=== PATIENT | female | born 1980 | race Caucasian/White ===

== ENCOUNTER → 2017-04-04 | Outpatient (CLI) | payer BC | END | disposition home or self-care (01) | LOC: MMGSC 15:50 | PROVIDERS: ATTEND Family Medicine | DX: L02.93 Carbuncle, unspecified (principal) | CPT/HCPCS: 87070; 87205 ==

== ENCOUNTER → 2017-04-07 | Outpatient (CLI) | payer BC | END | disposition home or self-care (01) | LOC: MMGSC 10:18 | PROVIDERS: ATTEND Family Medicine | DX: N39.0 Urinary tract infection, site not specified (principal) | CPT/HCPCS: 87086 ==

== ENCOUNTER 2017-08-23 08:54 | Day surgery (SDC) | payer BC ==
[2017-08-17 14:43] VITALS: BMI 61.3
[~2017-08-23 08:54] MED LIST: DEXAMETHASONE SOD PHOSPHATE 10 MG/ML 1 ML VIAL IV ONE; HEPARIN SODIUM,PORCINE 5,000 UNIT/ML 1 ML VIAL SQ ONE; HYDROmorphone 0.5 MG/0.5 ML SYRINGE IVP PRN; LACTATED RINGERS 1,000 ML IV SCH; ONDANSETRON 4 MG/2 ML VIAL IVP ONE; Pre Op ABX Message 1 EACH MISC MISCELLANE ONE
[2017-08-23] MEDS ORDERED: LIDOCAINE 1% 20 ML VIAL (10MG/ML) FOR IV START INTRADERMA ONE (09:36)
[2017-08-23] MEDS ORDERED: fentaNYL (PF) 50 MCG/ML 2 ML AMP ONE (10:12)
[2017-08-23] MEDS ORDERED: PROPOFOL 10 MG/ML 20 ML VIAL IV ONE (10:12)
[2017-08-23] MEDS ORDERED: SUCCINYLCHOLINE CHLORIDE 100 MG/5 ML SYR IV ONE (10:12)
[2017-08-23] MEDS ORDERED: SODIUM CHLORIDE 0.9% 50 ML with ceFAZolin 2,000 MG IV ONE ×2 (10:12)
[2017-08-23] MEDS ORDERED: LIDOCAINE 1% INJ 10MG/ML (20 ML MDV) ONE (10:12)
[2017-08-23] MEDS ORDERED: MIDAZOLAM 2 MG/2 ML VIAL ONE (10:12)
[2017-08-23] MEDS ORDERED: GLYCOPYRROLATE 0.2 MG/ML 2 ML VIAL ONE (10:12)
[2017-08-23] MEDS ORDERED: BUPIVACAINE-EPI 0.5%-1:200,000 10 ML VIAL SQ ONE ×2 (10:43)
[2017-08-23 11:15] VITALS: TEMP 96.8
--- NOTE | 2017-08-23 11:58 | P.OP ---
Date of Procedure: 08/23/17 Preoperative Diagnosis: Morbid obesity BMI 61.3 Soft tissue mass 2 in left medial thigh/gluteal fold Postoperative Diagnosis: Same Procedure(s) Performed: Excision of soft tissue mass 2 Implants: NA Anesthesia: ROSALEE, local Surgeon: Toña Marr Pathology: other Condition: stable Disposition: PACU Description of Procedure: She was brought to the operating room and placed in supine position. Gen. anesthesia with endotracheal intubation was performed as per anesthesia team to verify correct patient, correct procedure and correct side. Patient was placed in frog-leg position. Chlorhexidine was used to prep the skin followed by application of sterile drapes. A 0.5 x 0.5 cm skin incision was made to remove this small skin and subcutaneous tissue lesion. This was closed with single stitch of 3-0 nylon. The abscess and 2 x 2 centimeters that indurated mass was excised. Post excision measurement 2 x 2 by 0.5 cm. This was closed with interrupted sutures of 3-0 nylon. The instrument and needle count were correct 2.
[2017-08-23 12:34] VITALS: RESP 16
[2017-08-23 12:36] VITALS: BP 115/59; PULSE 86
== END 2017-08-23 12:25 | disposition home or self-care (01) ==
LOC: OR 08:54
PROVIDERS: ATTEND Surgery
DX: R22.2 Localized swelling, mass and lump, trunk (principal); L02.31 Cutaneous abscess of buttock; E66.01 Morbid (severe) obesity due to excess calories; Z68.44 Body mass index [BMI] 60.0-69.9, adult; I10 Essential (primary) hypertension; G47.33 Obstructive sleep apnea (adult) (pediatric); K21.9 Gastro-esophageal reflux disease without esophagitis; F17.200 Nicotine dependence, unspecified, uncomplicated; Z79.899 Other long term (current) drug therapy
CPT/HCPCS: 11402; 81025; 88304; J2250; J1644; J1100; J2405; J2001; J3010; J0690; J0330; J2704

== ENCOUNTER → 2017-09-29 | Outpatient (CLI) | payer BC | END | disposition home or self-care (01) | LOC: MMGSC 12:32 | PROVIDERS: ATTEND Family Medicine | DX: L72.8 Other follicular cysts of the skin and subcutaneous tissue (principal) | CPT/HCPCS: 87070; 87077; 87186; 87205 ==

== ENCOUNTER → 2018-01-08 | Outpatient (CLI) | payer BC ==
[2018-01-08 19:29] LABS: Basophils # (A) 0.1 k/uL (0-0.2); Basophils % (A) 1 %; Eosinophils # (A) 0.1 k/uL (0-0.7); Eosinophils % (A) 1 %; HCT 42.8 % (34.0-46.0); HGB 14.3 gm/dL (11.4-16.0); Lymphocytes # (A) 3.8 k/uL (1.0-4.8); Lymphocytes % (A) 33 %; MCH 28.1 pg (25.0-35.0); MCHC 33.4 g/dL (31.0-37.0); Mean Platelet Volume 6.6; Monocytes # (A) 0.7 k/uL (0-1.0); Monocytes % (A) 6 %; Neutrophils # (A) 6.5 k/uL (1.3-7.7); Neutrophils % (A) 58 %; Platelet Count 466 k/uL (150-450); RBC 5.09 m/uL (3.80-5.40); RDW 13.4 % (11.5-15.5); WBC 11.3 k/uL (3.8-10.6)
[2018-01-08 19:31] LABS: ALT 13 U/L (9-52); AST 18 U/L (14-36); Albumin 3.8 g/dL (3.5-5.0); Alkaline Phosphatase 82 U/L (38-126); Anion Gap 9 mmol/L; Blood Urea Nitrogen 13 mg/dL (7-17); Calcium 9.6 mg/dL (8.4-10.2); Carbon Dioxide 28 mmol/L (22-30); Chloride 104 mmol/L (98-107); Cholesterol 164 mg/dL (<200); Glucose 103 mg/dL (74-99); HDL Cholesterol 44 mg/dL (40-60); LDL Cholesterol,Calculated 91 mg/dL (0-99); Potassium 4.4 mmol/L (3.5-5.1); Sodium 141 mmol/L (137-145); Total Bilirubin 0.2 mg/dL (0.2-1.3); Triglycerides 144 mg/dL (<150)
[2018-01-08 19:39] LABS: T4, Free (Free Thyroxine) 0.81 ng/dL (0.78-2.19)
[2018-01-09 00:49] LABS: Vitamin D 25 Hydroxy 7.8 ng/mL (30.0-100.0)
== END | disposition home or self-care (01) ==
LOC: MMGSC 15:21
PROVIDERS: ATTEND Family Medicine
DX: I10 Essential (primary) hypertension (principal); E66.9 Obesity, unspecified; E78.5 Hyperlipidemia, unspecified; R53.83 Other fatigue
CPT/HCPCS: 36415; 80053; 80061; 82306; 82607; 84439; 84443; 85025

== ENCOUNTER → 2018-11-30 | Outpatient (CLI) | payer BC ==
[2018-11-30 09:51] LABS: HCT 42.9 % (34.0-46.0); HGB 13.8 gm/dL (11.4-16.0); MCH 27.8 pg (25.0-35.0); MCHC 32.3 g/dL (31.0-37.0); MCV 86.3 fL (80.0-100.0); Mean Platelet Volume 6.3; Platelet Count 428 k/uL (150-450); RBC 4.97 m/uL (3.80-5.40); RDW 13.8 % (11.5-15.5); WBC 10.3 k/uL (3.8-10.6)
[2018-11-30 17:55] LABS: Albumin/Globulin Ratio 1.82 (1.60-3.17); Anion Gap 6.3 mmol/L (4.00-12.00); Calcium 9.2 mg/dL (8.7-10.3); Carbon Dioxide 28.7 mmol/L (21.6-31.8); Globulin 2.2 g/dL (1.6-3.3); Potassium 4.6 mmol/L (3.5-5.5); Total Bilirubin 0.3 mg/dL (0.2-1.2); Total Protein 6.2 g/dL (6.2-8.2)
[2018-11-30 18:06] LABS: T4, Free (Free Thyroxine) 0.8 ng/dL (0.80-1.80)
[2018-11-30 22:23] LABS: Hemoglobin A1C 6.1 % (4.0-6.0)
== END | disposition home or self-care (01) ==
LOC: LABWHC1 08:48
PROVIDERS: ATTEND Family Medicine
DX: I10 Essential (primary) hypertension (principal); E66.9 Obesity, unspecified; E03.9 Hypothyroidism, unspecified; E55.9 Vitamin D deficiency, unspecified
CPT/HCPCS: 36415; 80053; 82306; 83036; 84439; 84443; 85027

== ENCOUNTER → 2019-09-19 | Outpatient (CLI) | payer BC ==
[2019-09-19 16:44] LABS: African American GFR (CKD) 108.4 (60.0-200.0); Albumin 4.1 g/dL (3.80-4.90); Albumin/Globulin Ratio 1.78 (1.60-3.17); Anion Gap 5.2 mmol/L (4.00-12.00); BUN/Creat Ratio 13.75 Ratio (12.00-20.00); Calcium 9.4 mg/dL (8.7-10.3); Carbon Dioxide 30.8 mmol/L (21.6-31.8); Chol/HDL Ratio 3.36; Globulin 2.3 g/dL (1.6-3.3); LDL Cholesterol,Calculated 80.2 mg/dL (0.0-131.0); Non-African American GFR(CKD) 93.5 (60.0-200.0); Potassium 4.8 mmol/L (3.5-5.5); Total Bilirubin 0.3 mg/dL (0.3-1.2); Total Protein 6.4 g/dL (6.2-8.2); VLDL Calculation 25.8 mg/dL (5.00-40.00)
[2019-09-19 16:51] LABS: T4, Free (Free Thyroxine) 0.9 ng/dL (0.80-1.80)
[2019-09-19 18:05] LABS: Hemoglobin A1C 6.2 % (4.0-6.0)
== END | disposition home or self-care (01) ==
LOC: LABWHC1 08:54
PROVIDERS: ATTEND Family Medicine
DX: I10 Essential (primary) hypertension (principal); E03.9 Hypothyroidism, unspecified
CPT/HCPCS: 36415; 80053; 80061; 83036; 84439; 84443

== ENCOUNTER → 2019-12-05 | Outpatient (CLI) | payer BC ==
--- NOTE | 2019-12-05 20:48 | CONS ---
CONSULTATION DATE OF SERVICE: 12/05/2019 This patient is a 39-year-old lady who has been evaluated for obstructive sleep apnea- hypopnea syndrome. HISTORY OF PRESENT ILLNESS/SLEEP-WAKE EVALUATION: This patient was diagnosed with obstructive sleep apnea about 15 years ago. After that, the patient underwent ear, nose and throat surgery UPPP with adenoidectomy, and her condition improved. She had another sleep study which showed that her breathing is better, but it has not normalized. The patient has gained about 100 pounds since her last sleep study and at present has loud snoring and witnessed episodes of stopped breathing during sleep. Her sleep schedule on weekdays is from around 1 p.m. until 9 p.m. and on weekends from around 5 a.m. until 2 p.m. She usually works the midnight shift. She does have problems with falling asleep. She has a TV set in the bedroom. She sleeps on the side and stomach positions. She takes an additional nap around 5 p.m., depending on her schedule. She wakes up from sleep around 2 times with nocturia. During the night she has a rocking movements of her bottom. No history of hypnagogic hallucinations, sleep paralysis or cataplexy. [place] Sleepiness Scale is 6. PAST MEDICAL HISTORY: Positive for hypertension, hypothyroidism, headaches, depression, acid reflux. PAST SURGICAL HISTORY: Cholecystectomy, UPPP. MEDICATIONS: Levothyroxine, sumatriptan, amlodipine, metoprolol, amitriptyline, sertraline, famotidine, acetaminophen. SOCIAL HISTORY: Positive for smoking about one pack a day for around 20 years. Alcohol consumption none. FAMILY HISTORY: Hypertension, heart problems, hyperlipidemia, arthritis, asthma, headaches, acid reflux, ulcers, diabetes, thyroid problems. REVIEW OF SYSTEMS: Multiple awakenings from sleep, tiredness and sleepiness with taking naps. PHYSICAL EXAMINATION: GENERAL: A pleasant lady without distress. VITAL SIGNS: BP 164/94, HR 88, RR 16, height 5 feet 7 inches, weight 408 pounds, body mass index 63.9, temperature 98.2, oxygen saturation at room air 96%. HEENT: PERRLA, EOMI. Evaluation of oropharynx showed tongue protrudes midline. Extremely low position of soft palate. Mallampati IV. Restriction of nasal breathing. NECK: Supple. No JVD. Thyroid is not palpable. Wide neck. LUNGS: Clear to percussion and to auscultation. Good air exchange. No wheezing or rhonchi. HEART: S1, S2 regular. No murmurs, gallops or rubs. ABDOMEN: Obese. EXTREMITIES: One plus ankle edema. BIODIESEL PLANT MANAGER: Awake, alert, and oriented X3. Cranial nerves 2 to 7 intact. There is no fasciculation or atrophy. noted. No focal deficits observed. IMPRESSION: 1. Loud snoring, witnessed episodes of stopped breathing during sleep, extremely low position of soft palate, Mallampati IV, wide neck, obesity; obstructive sleep apnea- hypopnea syndrome. 2. Obesity; body mass index 63.9. 3. Rocking movements during sleep; possibly periodic limb movements. 4. Hypothyroidism. 5. Hypertension. 6. Episodes of headaches. 7. Depression. 8. Acid reflux. 9. Status post cholecystectomy. 10.Status post UPPP and adenoidectomy about 15 years ago. PLAN: 1. Polysomnography for evaluation of patient's breathing during sleep. 2. CPAP/BiPAP titration if sleep study confirms obstructive sleep apnea-hypopnea syndrome. 3. Preferable position during sleep on the side. 4. No driving if patient feels any sleepiness. 5. I will see patient for follow up visit to explain results of testing and following plan. Thank you very much for referring this patient for consultation. Sincerely, James Mcguire MD, PhD, FAASM Diplomat of [employer] Powder Compounder of [facility] [place] MMODL / IJN: [id number] /
== END | disposition home or self-care (01) ==
LOC: SLEEP 14:51
PROVIDERS: ATTEND Internal Medicine
DX: G47.33 Obstructive sleep apnea (adult) (pediatric) (principal); E66.9 Obesity, unspecified; G47.69 Other sleep related movement disorders; E03.9 Hypothyroidism, unspecified; I10 Essential (primary) hypertension; K21.9 Gastro-esophageal reflux disease without esophagitis; F32.9 Major depressive disorder, single episode, unspecified; Z68.44 Body mass index [BMI] 60.0-69.9, adult; Z90.49 Acquired absence of other specified parts of digestive tract; Z90.89 Acquired absence of other organs; Z98.890 Other specified postprocedural states; F17.200 Nicotine dependence, unspecified, uncomplicated; Z79.899 Other long term (current) drug therapy; Z79.890 Hormone replacement therapy
CPT/HCPCS: 99211

== ENCOUNTER → 2020-05-28 | Outpatient (CLI) | payer BC ==
--- NOTE | 2020-05-28 16:22 | SFUN ---
SLEEP CENTER FOLLOW UP NOTE DATE OF SERVICE: 05/28/2020 A 39-year-old lady who has been followed in the sleep Center for treatment of obstructive sleep apnea-hypopnea syndrome. Recently patient had a polysomnogram which showed extremely severe sleep apnea. Then she had CPAP-BiPAP titration and subsequently was started on treatment with BiPAP. Today is her first visit after starting to use BiPAP equipment. Patient feels better with the BiPAP. She sleeps better. [place] Sleepiness Scale today is only 2. I checked her BiPAP unit, maximal IPAP pressure 22 cm of water, minimum EPAP pressure 18 cm of water pressure support 4, average pressure 21.5/17.4. Leak 20 L/minute which is borderline. Apnea-hypopnea index average for the last month is 13, usage is 22/30 nights for more than 4 hours with average usage 7.3 hours per night, which is normal compliance. MEDICATIONS: Levothyroxine, amlodipine, metoprolol, amitriptyline, sertraline, famotidine, acetaminophen, albuterol, Flovent. PHYSICAL EXAM: Patient is in no distress. BP 165/77, HR 84, RR 18, weight 433 pounds, temperature 97.5, oxygen saturation at room air 94%. HEENT: Oropharynx extremely low position of soft palate. Mallampati 4. NECK: Supple, no JVD. Thyroid is not palpable. LUNGS: Clear to percussion and to auscultation. Good air exchange. No wheezing or rhonchi. HEART: S1, S2 regular. No murmurs, gallops, or rubs. ABDOMEN: Obese. EXTREMITIES: No clubbing or cyanosis. NANOTECHNOLOGY ENGINEERING TECHNOLOGIST: Awake, alert, and oriented X3. Cranial nerves 2 to 7 intact. There is no fasciculation or atrophy. noted. No focal deficits observed. IMPRESSION: 1. Extremely severe obstructive sleep apnea-hypopnea syndrome; apnea-hypopnea index 115.4 with oxygen desaturation to 36.1%, improved on BiPAP. The patient demonstrated good compliance with treatment benefitting from treatment. 2. Morbid obesity, body mass index more than 60. 3. Periodic limb movements. 4. Hypothyroidism. 5. Hypertension. 6. Episodes of headaches. 7. Depression. 8. Acid reflux. 9. Status post UPPP and adenoidectomy about 15 years ago. 10.Status post cholecystectomy. PLAN: PLAN 1.I will increase pressure in BiPAP unit to the maximal pressure of 25. 2.Sleep hygiene with regular time in bed for at least 7-1/2 to 8 hours. 1. Precautions related to driving. No driving if feeling sleepiness. 2. I will maintain all necessary prescription for PAP supplies including mask, tube, filters. 3. Watching weight. 4. No driving if feeling sleepiness. 5. Follow-up visit in 6 months or earlier if patient has any problems. Thank you very much for allowing me to participate in the management of your patient. Sincerely, James Mcguire MD, PhD, FAASM Diplomat of [employer] Blast Furnace Helper of [facility] [place] MMODL / IJN: [id number] /
== END | disposition home or self-care (01) ==
LOC: SLEEP 11:33
PROVIDERS: ATTEND Internal Medicine
DX: G47.33 Obstructive sleep apnea (adult) (pediatric) (principal); G47.61 Periodic limb movement disorder; E66.01 Morbid (severe) obesity due to excess calories; E03.9 Hypothyroidism, unspecified; I10 Essential (primary) hypertension; F32.9 Major depressive disorder, single episode, unspecified; R51 Headache; K21.9 Gastro-esophageal reflux disease without esophagitis; Z99.89 Dependence on other enabling machines and devices; Z68.44 Body mass index [BMI] 60.0-69.9, adult; Z90.49 Acquired absence of other specified parts of digestive tract; Z98.890 Other specified postprocedural states

== ENCOUNTER → 2020-07-23 | Outpatient (CLI) | payer BC ==
--- NOTE | 2020-07-23 15:35 | SFUN ---
SLEEP CENTER FOLLOW UP NOTE DATE OF SERVICE: 07/23/2020 A 39-year-old lady who has been followed in Sleep Center for treatment of extremely severe obstructive sleep apnea-hypopnea syndrome. During the previous visit, I increased her BiPAP pressure to the maximal level of 25 cm of water. During the previous visit, the average apnea-hypopnea index was 13. Patient feels better with the CPAP. Sleeps well. [place] Sleepiness Scale today is 2. I checked her BiPAP unit. Maximal inspiratory pressure 25, minimal expiratory pressure 18, pressure support for average pressure of 23.7/19.7. Leak is 5 L/minute. Apnea- hypopnea index 10.9, which is subsequently better than during the previous visit. MEDICATIONS: Amlodipine, metoprolol, amitriptyline, sertraline, famotidine, levothyroxine, acetaminophen, albuterol, Flovent. PHYSICAL EXAM: Patient in no distress. BP 149/97, HR 76, RR 15, height 5, 7, weight 432, which is about the same as during previous visit, BMI 67.6, temperature 98.0, oxygen saturation at room air 97%. OROPHARYNX: Extremely low position of soft palate. Mallampati 4. ABDOMEN: Obese. NECK: Supple, no JVD. Thyroid is not palpable. LUNGS: Clear to percussion and to auscultation. Good air exchange. No wheezing or rhonchi. HEART: S1, S2 regular. No murmurs, gallops, or rubs. EXTREMITIES: No clubbing or cyanosis. PERSONAL INJURY PARALEGAL: Awake, alert, and oriented X3. Cranial nerves 2 to 7 intact. There is no fasciculation or atrophy. noted. No focal deficits observed. IMPRESSION: 1. Extremely severe obstructive sleep apnea-hypopnea syndrome, AHI 115.4, improved on BiPAP. Patient demonstrated good compliance with treatment, benefitting from treatment. 2. Morbid obesity, body mass index 67.6. 3. Periodic limb movements. 4. Hypothyroidism. 5. Hypertension. 6. Depression. 7. Episodes of headaches. 8. Acid reflux. 9. Status post UPPP and adenoidectomy 15 years ago. 10.Status post cholecystectomy. PLAN: 1. BiPAP inspiratory pressure is already on the maximal at 25. To increase expiratory pressure, I changed pressure support to 3 instead of 4. 2. Patient will continue to use PAP equipment every night for the whole night. 3. Sleep hygiene with regular time in bed for at least 7-1/2 to 8 hours. 4. Precautions related to driving. No driving if feeling sleepiness. 5. I will maintain all necessary prescription for PAP supplies including mask, tube, filters. 6. Watching weight. 7. No driving if feeling sleepiness. 8. Follow-up visit in 4 months or earlier if patient has any problems. Thank you very much for allowing me to participate in the management of your patient. Sincerely, James Mcguire MD, PhD, FAASM Diplomat of [employer] [employer] Medicine Test Lead of [facility] [place] MMODL / IJN: [id number] /
== END | disposition home or self-care (01) ==
LOC: SLEEP 11:17
PROVIDERS: ATTEND Internal Medicine
DX: G47.33 Obstructive sleep apnea (adult) (pediatric) (principal); G47.61 Periodic limb movement disorder; I10 Essential (primary) hypertension; E03.9 Hypothyroidism, unspecified; K21.9 Gastro-esophageal reflux disease without esophagitis; F32.9 Major depressive disorder, single episode, unspecified; R51 Headache; E66.01 Morbid (severe) obesity due to excess calories; Z68.44 Body mass index [BMI] 60.0-69.9, adult; Z98.890 Other specified postprocedural states; Z90.89 Acquired absence of other organs; Z90.49 Acquired absence of other specified parts of digestive tract; Z79.899 Other long term (current) drug therapy; Z79.890 Hormone replacement therapy; Z79.891 Long term (current) use of opiate analgesic; Z79.51 Long term (current) use of inhaled steroids; Z99.89 Dependence on other enabling machines and devices

== ENCOUNTER → 2020-08-19 | Outpatient (CLI) | payer BC ==
--- NOTE | 2020-08-19 10:31 | US ---
EXAMINATION TYPE: US pelvic complete DATE OF EXAM: 08/19/2020 COMPARISON: US 2013 CLINICAL HISTORY: R10.2 Pelvic and perineal pain. Intermittent pelvic pain x couple months, 0 , history of PCOS TECHNIQUE: . Transabdominal sonographic images of the pelvis were acquired. Transvaginal sonographi c images were medically necessary to better assess the following anatomy: uterus and ovaries Date of LMP: 08/14/2020 EXAM MEASUREMENTS: Uterus: 5.7 x 3.3 x 3.5 cm Endometrial Stripe: 0.3 cm Right Ovary: 3.1 x 2.3 x 2.8 cm Left Ovary: 3.4 x 2.6 x 2.2 cm Difficult and limited study due to morbidly obese patient 1. Uterus: retroverted, heterogeneous, multiple nabothian cysts 2. Endometrium: wnl 3. Right Ovary: multiple follicles 4. Left Ovary: multiple follicles 5. Bilateral Adnexa: wnl 6. Posterior cul-de-sac: wnl IMPRESSION: 1. Nonspecific heterogeneous pattern of the uterus. No discrete fibroids. Endometrium measures within normal limits and there is no evidence of adnexal mass.
== END | disposition home or self-care (01) ==
LOC: RADUSWWP 09:44
PROVIDERS: ATTEND Family Medicine
DX: N85.4 Malposition of uterus (principal)
CPT/HCPCS: 76830

== ENCOUNTER → 2020-11-26 | Outpatient (CLI) | payer BC ==
--- NOTE | 2020-11-26 20:58 | SFUN ---
SLEEP CENTER FOLLOW UP NOTE DATE OF SERVICE: 11/26/2020 This is a 40-year-old lady who has been followed in Sleep Center for treatment of obstructive sleep apnea-hypopnea syndrome. Patient continues to use her BiPAP equipment every night for the whole night and sleeps well with the machine. [place] Sleepiness Scale today is actually zero. I checked her BiPAP unit. I changed the pressure in the BiPAP last time. The current maximal inspiratory pressure is 25, minimal expiratory pressure 18, pressure support 3. The patient is using it 28/30 nights for more than 4 hours with average usage 8.7 hours per night. Leak is only 1 L/minute. Apnea-hypopnea index is 7.0, which is an improvement compared with the previous visit, when it was in the range of 11. MEDICATIONS: 1. Metoprolol 100 mg once a day. 2. Mobic mg once a day. 3. Victoza once a day. 4. Amlodipine 10-20 mg once a day. 5. Amitriptyline 10 mg once a day. PHYSICAL EXAMINATION: GENERAL: A pleasant patient in no distress. VITAL SIGNS: BP 155/95, HR 57, RR 15, height 5 feet 8 inches, weight 430.4 pounds, body mass index 65.6, temperature 98.1, oxygen saturation at room air 99%. HEENT: PERRLA, EOMI. Evaluation of oropharynx showed tongue protrudes midline. Extremely low position of soft palate. Mallampati IV. NECK: Supple. No JVD. Thyroid is not palpable. LUNGS: Clear to percussion and to auscultation. Good air exchange. No wheezing or rhonchi. HEART: S1, S2 regular. No murmurs, gallops or rubs. ABDOMEN: Significantly obese. EXTREMITIES: No clubbing or cyanosis. PREMIUM SERVICE REPRESENTATIVE: Awake, alert, and oriented X3. Cranial nerves 2 to 7 intact. There is no fasciculation or atrophy. noted. No focal deficits observed. IMPRESSION: 1. Extremely severe obstructive sleep apnea-hypopnea syndrome with original apnea- hypopnea index 115.4. The patient has demonstrated great compliance with treatment, benefitting from treatment. 2. Morbid obesity. BMI 65.6. 3. History of periodic limb movements. No significant complaints about limb movements at the present time. No sleepiness during the day. 4. Hypothyroidism. 5. Hypertension. 6. History of depression. 7. History of episodes of headaches. 8. Acid reflux. 9. Status post UPPP and adenoidectomy 15 years ago. 10.Status post cholecystectomy. PLAN: 1. Patient will continue to use PAP equipment every night for the whole night. 2. Sleep hygiene with regular time in bed for at least 7-1/2 to 8 hours. 3. Precautions related to driving. No driving if feeling sleepiness. 4. I will maintain all necessary prescription for PAP supplies including mask, tube, filters. 5. Watching weight. 6. No driving if feeling sleepiness. 7. Follow-up visit in 6 months or earlier if patient has any problems. Thank you very much for allowing me to participate in the management of your patient. Sincerely, James Mcguire MD, PhD, FAASM Diplomat of [employer] Medicine 911 Dispatcher of [facility] [place] MMODL / IJN: [id number] /
== END | disposition home or self-care (01) ==
LOC: SLEEP 11:46
PROVIDERS: ATTEND Internal Medicine
DX: G47.33 Obstructive sleep apnea (adult) (pediatric) (principal); E66.01 Morbid (severe) obesity due to excess calories; E03.9 Hypothyroidism, unspecified; I10 Essential (primary) hypertension; Z86.69 Personal history of other diseases of the nervous system and sense organs; Z90.49 Acquired absence of other specified parts of digestive tract; K21.9 Gastro-esophageal reflux disease without esophagitis; Z98.890 Other specified postprocedural states; Z68.44 Body mass index [BMI] 60.0-69.9, adult; Z79.1 Long term (current) use of non-steroidal anti-inflammatories (NSAID); Z79.899 Other long term (current) drug therapy; Z99.89 Dependence on other enabling machines and devices

== ENCOUNTER → 2021-06-10 | Outpatient (CLI) | payer BC ==
--- NOTE | 2021-06-10 14:28 | SFUN ---
SLEEP CENTER FOLLOW UP NOTE DATE OF SERVICE: 06/10/2021 This 40-year-old lady has been followed in Sleep Center for treatment of obstructive sleep apnea-hypopnea syndrome. The patient has extremely severe sleep apnea. A couple of visits ago I changed BiPAP pressure, increasing it. During the previous visit, apnea-hypopnea index was 7, which showed improvement, but still slightly above normal range. Again, the patient continues to use her equipment every night. No snoring with the machine. [place] Sleepiness Scale is zero. I checked her BiPAP unit. The air filter needs to be changed. Maximal inspiratory pressure is 25, minimal expiratory pressure 18, pressure support 3. Usage is 27/30 nights and 23/30 nights for more than 4 hours. Leak is only 0 L/minute. Apnea-hypopnea index is only 1.8. The patient explained that the day when she did not use it, at night she worked. MEDICATIONS: 1. Metoprolol 100 mg once a day. 2. Amlodipine/benazepril 10/20 mg once a day. 3. Meloxicam 15 mg once a day. 4. Amitriptyline 10 mg once a day. 5. Levothyroxine 50 mcg once a day. 6. Victoza injection once a day. 7. Flovent twice a day inhaler. 8. Albuterol on a p.r.n. basis inhaler. 9. Omeprazole 20 mg once a day. 10.Vitamin C 1000 mg supplement once a day. 11.Polyvitamins. PHYSICAL EXAMINATION: GENERAL: A pleasant patient without any distress. VITAL SIGNS: BP 133/79, HR 68, RR 18, height 5 feet 7 inches, weight 410. Patient lost 20 pounds since previous visit. Body mass index 64.2, temperature 98.7, oxygen saturation at room air 95%. HEENT: PERRLA, EOMI, evaluation of oropharynx showed tongue protrudes midline. Extremely low position of soft palate, Mallampati IV. NECK: Supple, no JVD. Thyroid is not palpable. LUNGS: Clear to percussion and to auscultation. Good air exchange. No wheezing or rhonchi. HEART: S1, S2 regular. No murmurs, gallops, or rubs. ABDOMEN: Obese. EXTREMITIES: No clubbing or cyanosis. PILLING MACHINE OPERATOR: Awake, alert, and oriented X3. Cranial nerves 2 to 7 intact. There is no fasciculation or atrophy. noted. No focal deficits observed. IMPRESSION: 1. Extremely severe obstructive sleep apnea-hypopnea syndrome; apnea-hypopnea index 115.4. The patient demonstrated good compliance with treatment. Presently full normalization of patient's respiration on BiPAP to normal. 2. Morbid obesity. Patient lost about 20 pounds since previous visit. Body mass index 64.2. 3. History of periodic limb movements. Presently no complaints of periodic limb movements. Now patient sleeps well. 4. Hypothyroidism. 5. Hypertension. 6. History of depression. 7. History of headaches. 8. Acid reflux. 9. Status post UPPP and adenoidectomy 15 years ago. 10.Status post cholecystectomy. PLAN: 1. Patient will continue to use PAP equipment every night for the whole night. 2. Sleep hygiene with regular time in bed for at least 7-1/2 to 8 hours. 3. Precautions related to driving. No driving if feeling sleepiness. 4. I will maintain all necessary prescription for PAP supplies including mask, tube, filters. 5. Watching weight. 6. Follow-up visit in 6 months or earlier if patient has any problems. Thank you very much for allowing me to participate in the management of your patient. Sincerely, James Mcguire MD, PhD, FAASM Diplomat of [employer] Sleep Medicine Board of [employer] Board of Internal Medicine Submarine Element Coordinator of [facility] [place] MMODL / TOBYN: [id number] /
== END ==
LOC: SLEEP 10:49
PROVIDERS: ATTEND Internal Medicine
DX: G47.33 Obstructive sleep apnea (adult) (pediatric) (principal); E66.01 Morbid (severe) obesity due to excess calories; E03.9 Hypothyroidism, unspecified; I10 Essential (primary) hypertension; F32.9 Major depressive disorder, single episode, unspecified; K21.9 Gastro-esophageal reflux disease without esophagitis; F17.200 Nicotine dependence, unspecified, uncomplicated; Z68.44 Body mass index [BMI] 60.0-69.9, adult; Z90.89 Acquired absence of other organs; Z90.49 Acquired absence of other specified parts of digestive tract; Z87.898 Personal history of other specified conditions; Z86.69 Personal history of other diseases of the nervous system and sense organs

== ENCOUNTER → 2021-12-09 | Outpatient (CLI) | payer BC ==
--- NOTE | 2021-12-09 13:48 | SFUN ---
SLEEP CENTER FOLLOW UP NOTE DATE OF SERVICE: 12/09/2021. 41-year-old lady has been followed in Sleep Center for treatment of severe obstructive sleep apnea-hypopnea syndrome. Patient continued to use her BiPAP equipment every night, getting her supplies in time. [place] Sleepiness Scale today is 0. I checked her BiPAP unit. Maximal inspiratory pressure 25, minimal expiratory pressure 18, pressure support 3, average pressure 22/19, usage is 29/30 nights and 24/30 nights for more than 4 hours, average 8.3 hours per night. Leak is 0 L/minute. Apnea-hypopnea index is 1.6 which is totally normal. MEDICATIONS: Meloxicam 15 mg once a day, amitriptyline 10 mg once a day, metoprolol 100 mg once a day, amlodipine, benazepril 10-20 mg once a day. PHYSICAL EXAMINATION: GENERAL: Patient in no distress. BP 137/90, HR 71, RR 18, weight 395.8 pounds, which is 15 pounds less than during previous visit. Height 5 feet 7 inches, Oropharynx: Extremely low position of soft palate, Mallampati 4. NECK: Supple, no JVD. Thyroid is not palpable. LUNGS: Clear to percussion and to auscultation. Good air exchange. No wheezing or rhonchi. HEART: S1, S2 regular. No murmurs, gallops, or rubs. ABDOMEN: Obese. Soft and nontender. Bowel sounds are present. No organomegaly appreciated. EXTREMITIES: No clubbing or cyanosis. VENTURE CAPITALIST: Awake, alert, and oriented X3. Cranial nerves 2 to 7 intact. There is no fasciculation or atrophy. noted. No focal deficits observed. IMPRESSION: 1. Extremely severe obstructive sleep apnea-hypopnea syndrome. Original apnea- hypopnea index 115.4. The patient demonstrated great compliance with treatment. Normal respiration on BiPAP. 2. Morbid obesity. Patient lost 15 pounds since previous visit. 3. History of periodic limb movements during the sleep study. Presently no complaints on any leg movements. 4. Hypertension. 5. Hypothyroidism. 6. History of depression. 7. History of headaches. 8. Acid reflux. 9. Status post uvulopalatopharyngoplasty and adenoidectomy about 15 years ago. 10.Status post cholecystectomy. PLAN: 1. Patient will continue to use PAP equipment every night for the whole night. 2. Sleep hygiene with regular time in bed for at least 7-1/2 to 8 hours. 3. Precautions related to driving. No driving if feeling sleepiness. 4. I will maintain all necessary prescription for PAP supplies including mask, tube, filters. 5. Watching weight. 6. Follow-up visit in 6 months or earlier if patient has any problems. Thank you very much for allowing me to participate in the management of your patient. Sincerely, James Mcguire MD, PhD, FAASM Diplomat of [employer] Sleep Medicine Board of [employer] of Internal Medicine Carry Out Clerk And Shelf Stocker of [facility] [place] MMODL / TOBYN: [id number] /
== END ==
LOC: SLEEP 10:47
PROVIDERS: ATTEND Internal Medicine
DX: G47.33 Obstructive sleep apnea (adult) (pediatric) (principal); E66.01 Morbid (severe) obesity due to excess calories; I10 Essential (primary) hypertension; E03.9 Hypothyroidism, unspecified; F32.A Depression, unspecified; K21.9 Gastro-esophageal reflux disease without esophagitis; Z90.49 Acquired absence of other specified parts of digestive tract; Z98.890 Other specified postprocedural states; Z90.09 Acquired absence of other part of head and neck; F17.200 Nicotine dependence, unspecified, uncomplicated; Z99.89 Dependence on other enabling machines and devices

== ENCOUNTER → 2022-05-13 | Outpatient (CLI) | payer OTHER ==
--- NOTE | 2022-05-16 07:40 | MM ---
Reason for Exam: Screening (asymptomatic). Baseline mammogram. Patient History: Menarche at age 18. Patient has no children. Premenopausal. Maternal grandmother had breast cancer under age 50. Paternal grandmother had breast cancer under age 50. Last menstrual period: 05/06/2022 Risk Values: Ximena 5 year model risk: 0.6%. NCI Lifetime model risk: 10.1%. Prior Study Comparison: Patient's first Mammogram. Tissue Density: The breast tissue is almost entirely fat. Findings: Analyzed By CAD. There is occasional small benign-appearing round calcification bilaterally. Bilateral axillary lymph nodes slightly more prominent in size and number in the left axilla are noted. There is no suspicious group of microcalcifications in either breast. Overall Assessment: Incomplete: need additional imaging evaluation, BI-RAD 0 Management: Diagnostic Breast Ultrasound of the right breast. Targeted ultrasound right axilla due to asymmetric axillary adenopathy. Electronically signed and approved by: Francis Saldana M.D.
== END | disposition home or self-care (01) ==
LOC: RADMAMWWP 06:48
PROVIDERS: ATTEND Family Medicine
DX: Z12.31 Encounter for screening mammogram for malignant neoplasm of breast (principal); R92.1 Mammographic calcification found on diagnostic imaging of breast
CPT/HCPCS: 77067

== ENCOUNTER → 2022-07-14 | Outpatient (CLI) | payer OTHER ==
--- NOTE | 2022-07-14 10:30 | P.PN ---
Subjective DATE: 07/14/2022 FOLLOW UP VISIT. Patient with obstructive sleep apnea hypopnea syndrome return to sleep center for follow-up visit. Information from previous visit have been reviewed. Patient is using BIPAP equipment every night for the whole night, getting BIPAP supplies in time. The patient does not have significant problems with the mask, BIPAP unit and humidification. [place]ville sleepiness scale is 0. I checked BIPAP unit and discussed with patient information from BiPAP unit. BIPAP unit pressure inspiratory maximum 25, expiratory minimum 18 pressure- support 3, average pressure 21.7/18.7 cm H2O. Usage is 100 % for more then 4 hours, average 7.1 hours per night. Leak is to l/m, which is perfect. Apnea Hypopnea Index is 0.5, which is perfect. MEDICATIONS:1. Metoprolol 100 mg once a day 2. []duloxetine 60 mg once a day 3. Meloxicam 15 mg once a day 4. Amitriptyline 10 mg once a day 5. Amlodipine 10 mg once a day 6. Omeprazole 20 mg once a day During physical exam: GENERAL: A pleasant patient without any distress. VITAL SIGNS: BP 150/87, HR 78, RR 16, weight 341 patient lost 54 pounds since previous visit, temperature 97.0, oxygen saturation at room air 99 % . HEENT: PERRLA, EOMI.low position of soft palate, Mallapati 4 . NECK: Supple. No JVD. LUNGS: Clear to percussion and to auscultation. Good air exchange. No wheezing or rhonchi. HEART: S1, S2 regular. ABDOMEN: Soft and nontender. Obese EXTREMITIES: No clubbing or cyanosis. TIME STUDY TECHNOLOGIST: Awake, alert, and oriented x3. No focal deficit. Impressions: 1. Obstructive sleep apnea-hypopnea syndrome and extremely severe range regional apnea-hypopnea index 115.4. Patient demonstrated great compliance with treatment, benefiting from treatment. Normal respiration on BiPAP. 2. Obesity patient lost 54 pounds since previous visit. 3. History of periodic limb movements, no present problems with leg movements at night.. 4. Hypertension 5. History of hypothyroidism. 6. History of depression. 7. Acid reflux. 8. History of headaches. 9. Status post uvulopalatopharyngoplasty and adenoidectomy about 15 years ago. 10. Status post cholecystectomy. 11.[]. 12.[]. Plan: 1. Continue using PAP equipment every night for the whole night. 2. To change air filter at least 1-2 times per month. 3. PAP unit should stay lower then position of the head. 4. Advised patient to remove all remaining water from humidifier canister daily and make it dry after each usage. Refill canister with fresh distilled water before each usage. 5. Sleep hygiene with regular time in bed for at least 8 hours. 6. Precautions related to driving. No driving if feel any sleepiness. 7. I will maintain prescription for PAP supplies including mask, tube, filters. 8. Follow up visit in 6 months or earlier if patient has any problems. 9. Watching and continue losing weight. Thank you very much for allowing me to participate in the management of your patient. James Mcguire MD, PhD, FAASM. Diplomat of [employer], Sleep Medicine Board by [employer] [facility]
== END | disposition home or self-care (01) ==
LOC: SLEEP 09:54
PROVIDERS: ATTEND Internal Medicine
DX: G47.33 Obstructive sleep apnea (adult) (pediatric) (principal); Z99.89 Dependence on other enabling machines and devices; E66.9 Obesity, unspecified; I10 Essential (primary) hypertension; E03.9 Hypothyroidism, unspecified; Z79.890 Hormone replacement therapy; F32.A Depression, unspecified; K21.9 Gastro-esophageal reflux disease without esophagitis; R51.9 Headache, unspecified; Z90.49 Acquired absence of other specified parts of digestive tract; F17.200 Nicotine dependence, unspecified, uncomplicated

== ENCOUNTER → 2022-07-21 | Outpatient (CLI) | payer OTHER ==
--- NOTE | 2022-07-21 09:06 | USB ---
Reason for Exam: Follow-up at short interval from prior study. Patient History: Menarche at age 18. Patient has no children. Premenopausal. Maternal grandmother had breast cancer under age 50. Paternal grandmother had breast cancer under age 50. Risk Values: Ximena 5 year model risk: 0.6%. NCI Lifetime model risk: 10.1%. Prior Study Comparison: 05/13/2022 Bilateral MG screening mammo w CAD, [facility]. Findings: The axilla of the left breast and the retroareolar of the left breast were scanned. Multiple grayscale and color Doppler ultrasound images of the left axilla were obtained. Prominent lymph nodes in the left axilla redemonstrated with one demonstrating cortical thickening measuring up to 6 mm which is similar to prior examination. Patient reports recent flu shot and cold. Overall Assessment: Probably benign, BI-RAD 3 Management: Diagnostic Breast Ultrasound of the left breast in 3 months. A clinical breast exam by your physician is recommended on an annual basis and results should be correlated with mammographic findings. If eccentric cortical thickening and/or prominent lymph nodes do not resolve, tissue sampling would be advised. Electronically signed and approved by: Bertram Henry D.O.
== END | disposition home or self-care (01) ==
LOC: RADUSWWP 08:18
PROVIDERS: ATTEND Family Medicine
DX: N63.20 Unspecified lump in the left breast, unspecified quadrant (principal)

== ENCOUNTER → 2022-10-31 | Outpatient (CLI) | payer OTHER ==
--- NOTE | 2022-10-31 08:36 | USB ---
Reason for Exam: Follow-up at short interval from prior study. Patient History: Menarche at age 18. Patient has no children. Premenopausal. Maternal grandmother had breast cancer under age 50. Paternal grandmother had breast cancer under age 50. Risk Values: Ximena 5 year model risk: 0.6%. NCI Lifetime model risk: 10.1%. Technique: Method: Targeted. Prior Study Comparison: 05/13/2022 Bilateral MG screening mammo w CAD, [facility]. Findings: The axilla of the left breast was scanned. Targeted ultrasound of the left axilla was performed. There are 2 lymph nodes identified again in the left axilla with largest measuring 1.8 x 0.9 x 0.9 cm. Decrease in cortical thickness of left axillary lymph nodes with largest measuring 4 mm, previously 6 mm. Consistent with improving lymph nodes, likely reactive due to previously reported flu shot and cold. Overall Assessment: Benign, BI-RAD 2 Management: Screening Mammogram of both breasts in 6 months. A clinical breast exam by your physician is recommended on an annual basis and results should be correlated with mammographic findings. This exam should not preclude additional follow-up of suspicious palpable abnormalities. Results were given to the patient verbally at the time of exam. Electronically signed and approved by: Bertram Henry D.O.
== END | disposition home or self-care (01) ==
LOC: RADUSWWP 07:35
PROVIDERS: ATTEND Family Medicine
DX: N63.20 Unspecified lump in the left breast, unspecified quadrant (principal); Z80.3 Family history of malignant neoplasm of breast

== ENCOUNTER → 2023-01-16 | Outpatient (CLI) | payer OTHER ==
[2023-01-16 15:38] LABS: Basophils % (A) 0.7 %; Eosinophils # (A) 0.16 X 10*3/uL (0.04-0.35); Eosinophils % (A) 1.1 %; HCT 41.7 % (37.2-46.3); HGB 13.4 g/dL (12.0-15.0); Immature Grans, Automated 0.5 %; Lymphocytes # (A) 4.76 X 10*3/uL (0.90-5.00); Lymphocytes % (A) 32.4 %; MCH 28.7 pg (27.0-32.0); MCHC 32.1 g/dL (32.0-37.0); MCV 89.3 fL (80.0-97.0); Mean Platelet Volume 9.3 fL (9.5-12.2); Monocytes # (A) 1.16 X 10*3/uL (0.20-1.00); Monocytes % (A) 7.9 %; NRBC Per 100 WBC 0 /100 WBCS (0.0-0.0); Neutrophils # (A) 8.46 X 10*3/uL (1.80-7.70); Neutrophils % (A) 57.4 %; Platelet Count 479 X 10*3/uL (140-440); RBC 4.67 X 10*6/uL (4.10-5.20); RDW 13.8 % (11.5-14.5); WBC 14.71 X 10*3/uL (4.50-10.00)
[2023-01-16 15:43] LABS: African American GFR (CKD) 105.4 (60.0-200.0); Non-African American GFR(CKD) 90.9 (60.0-200.0); Potassium 4.1 mmol/L (3.5-5.5)
[2023-01-16 16:43] LABS: Hepatitis B Surface AB- Quant 3.5 mIU/mL; Hepatitis B Surface Antibody Nonreactive (Nonreactive)
[2023-01-16 16:55] LABS: Hepatitis B Surface Antigen Nonreactive (Nonreactive); Hepatitis C IgG Antibody Nonreactive (Nonreactive)
== END | disposition home or self-care (01) ==
LOC: LABWHC1 08:37
PROVIDERS: ATTEND Dermatology
DX: L73.2 Hidradenitis suppurativa (principal)
CPT/HCPCS: 36415; 82565; 84132; 84450; 84460; 85025; 86480; 86704; 86706; 86803; 87340

== ENCOUNTER → 2024-01-01 | Outpatient (CLI) | payer OTHER ==
--- NOTE | 2024-01-01 14:11 | MM ---
Reason for Exam: Clinical finding. Last mammogram was performed 1 year(s) and 8 month(s) ago. Indicated Problems: Nipple abnormality of the left side. Patient History: Menarche at age 18. Patient has no children. Premenopausal. Maternal grandmother had breast cancer under age 50. Paternal grandmother had breast cancer under age 50. Last menstrual period: 12/27/2023 Risk Values: Ximena 5 year model risk: 0.7%. NCI Lifetime model risk: 9.9%. Prior Study Comparison: 05/13/2022 Bilateral MG screening mammo w CAD, [facility]. Tissue Density: The breasts are almost entirely fatty. Findings: Analyzed By CAD. No new suspicious masses, calcifications or distortions. Overall Assessment: Incomplete: need additional imaging evaluation, BI-RAD 0 Management: Diagnostic Breast Ultrasound of the left breast. Results were given to the patient verbally at the time of exam. Patient should continue monthly self-breast exams. A clinical breast exam by your physician is recommended on an annual basis. This exam should not preclude additional follow-up of suspicious palpable abnormalities. Note on Ximena scores and lifetime risk: 1. A Ximena score greater than 3% is considered moderate risk. If this is the case, consider specialist referral to assess eligibility for a risk reducing agent. 2. If overall lifetime risk for the development of breast cancer is 20% or higher, the patient may qualify for future screening with alternating mammogram and breast MRI. Electronically signed and approved by: Gary Mike DO
--- NOTE | 2024-01-01 14:22 | USB ---
Patient History: Menarche at age 18. Patient has no children. Premenopausal. Maternal grandmother had breast cancer under age 50. Paternal grandmother had breast cancer under age 50. Risk Values: Ximena 5 year model risk: 0.7%. NCI Lifetime model risk: 9.9%. Technique: Method: Targeted. Prior Study Comparison: 05/13/2022 Bilateral MG screening mammo w ONOFRE, [facility]. Findings: The retroareolar of the left breast was scanned. Technique utilized:US breast limited LT Image; Ultrasound imaging of: Area of concern. In the area of concern within the left breast is a area of hyperemia which surrounds and area which is predominantly hypoechoic measuring up to 1.2 x 0.8 x 0.8 mm. Overall Assessment: Probably benign, BI-RAD 3 Management: Diagnostic Breast Ultrasound of the left breast in 3 months. A clinical breast exam by your physician is recommended on an annual basis and results should be correlated with mammographic findings. This exam should not preclude additional follow-up of suspicious palpable abnormalities. Results were given to the patient verbally at the time of exam. Electronically signed and approved by: Gary Mike DO
== END | disposition home or self-care (01) ==
LOC: RADMAMWWP 13:27
PROVIDERS: ATTEND Family Medicine
DX: R92.313 Mammographic fatty tissue density, bilateral breasts (principal); N64.4 Mastodynia; Z80.3 Family history of malignant neoplasm of breast
CPT/HCPCS: 77062; 77066

== ENCOUNTER → 2024-03-27 | Outpatient (CLI) | payer BC ==
--- NOTE | 2024-03-27 09:58 | USB ---
Reason for Exam: Follow-up at short interval from prior study. Patient History: Menarche at age 18. Patient has no children. Premenopausal. Maternal grandmother had breast cancer under age 50. Paternal grandmother had breast cancer under age 50. Risk Values: Ximena 5 year model risk: 0.7%. NCI Lifetime model risk: 9.9%. Technique: Method: Targeted. Prior Study Comparison: 05/13/2022 Bilateral MG screening mammo w CAD, [facility]. 01/01/2024 Left US breast limited LT, [facility]. 01/01/2024 Bilateral MG 3D diag mammo w/cad [facility], [facility]. Findings: The retroareolar of the left breast was scanned. Previously noted retroareolar infected collection is no longer visible. No solid or cystic masses are seen within the [id number].. Overall Assessment: Negative, BI-RAD 1 Management: Screening Mammogram of both breasts in 9 months. A clinical breast exam by your physician is recommended on an annual basis and results should be correlated with mammographic findings. This exam should not preclude additional follow-up of suspicious palpable abnormalities. Results were given to the patient verbally at the time of exam. Electronically signed and approved by: Maximiliano Mathew M.D. Radiologis
== END | disposition home or self-care (01) ==
LOC: RADUSWWP 09:19
PROVIDERS: ATTEND Family Medicine
DX: R92.8 Other abnormal and inconclusive findings on diagnostic imaging of breast (principal); Z80.3 Family history of malignant neoplasm of breast

== ENCOUNTER → 2025-04-14 | Outpatient (CLI) | payer OTHER ==
--- NOTE | 2025-04-14 08:58 | XR ---
EXAMINATION TYPE: XR chest 2V DATE OF EXAM: 04/14/2025 8:51 AM COMPARISON: None. 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 FINDINGS: There is no focal air space opacity. No evidence for pneumothorax. No pleural effusion. The cardiac silhouette size is within normal limits. The osseous structures are grossly intact. IMPRESSION: 1. No acute cardiopulmonary process. [facility], , 04/14/2025 8:55 AM
== END | disposition home or self-care (01) ==
LOC: RADXRMAIN 08:30
PROVIDERS: ATTEND Dermatology MOHS-Micrographic Surgery
DX: Z11.1 Encounter for screening for respiratory tuberculosis (principal); R07.9 Chest pain, unspecified
CPT/HCPCS: 71046